=== PATIENT | female | born 1975 | race Caucasian/White ===

== ENCOUNTER → 2017-05-20 | Outpatient (CLI) | payer BC ==
[~2017-05-20] MED LIST: ALBUTEROL17 GM INH; COUMADIN3 MG PO; CYANOCOBALAM1000 MCG PO; FERROUS SULFAT325 MG PO; IBUPROFEN600 MG PO; LORTAB 10-3251 EACH PO; MULTIPLE VITAM1 EAC1 PO; NORCO PO; VITAMIN D350000 UNIT PO
--- NOTE | ~2017-05-20 | CO ---
Unit #: [id number] #: [id number] Patient: SENTHIL LOVE [id number] [address] [place], [place] [address] [id number] O MR#: [id number] NAME: SENTHIL LOVE ROOM: Age: 41 Sex: F Admission Date: 05/20/2017 : 1975 Attending Physician: Micky Monahan M.D. Primary Care Physician: Primary Care Physician No Consultation Date: 05/20/2017 CONSULTATION REPORT DATE OF CONSULT 05/20/2017 REASON FOR CONSULTATION Preoperative medical evaluation prior to left total knee arthroplasty scheduled by Dr. Monahan for 06/03/2017. HISTORY OF PRESENT ILLNESS The patient is a 41-year-old female who presents for preprocedural screening for the reasons indicated above. She denies upper chest, upper back or neck, jaw pain or pressure. Denies shortness of air, dyspnea on exertion, PND or orthopnea. She has never been evaluated for obstructive sleep apnea. She denies history of myocardial infarction, congestive heart failure, CVA, TIA, diabetes or kidney disease. She does have a history of mitral valve prolapse and is established with Dr. Rodriguez in [place]. She routinely receives SBE prophylaxis prior to dental procedures. She has been evaluated by Dr. Monahan and is scheduled for the above-referenced procedure. PAST MEDICAL HISTORY 1. Osteoarthritis. 2. Severe postop nausea and vomiting. 3. Latex allergy. 4. Asthma. 5. Mitral valve prolapse for which she receives antibiotics prior to dental procedures. 6. Anxiety. 7. History of ulcer. 8. History of gastric bypass. 9. History of anemia. 10. Degenerative disc disease. 11. 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 12. History of MRSA in 2005. 13. Chronic back pain. PAST SURGICAL HISTORY 1. C section x3. 2. Uterine ablation. 3. Cholecystectomy. 4. Gastric bypass. 5. Left bunionectomy. 6. Right foot spur removal. 7. Bilateral knee arthroscopy. 8. Right total knee arthroplasty. Unit #: [id number] #: [id number] Patient: SENTHIL LOVE 9. Right adrenalectomy related to "blood clot." 10. Umbilical hernia repair 2006. 11. Right rotator cuff repair. Please note this patient denies a personal history of complications to anesthesia in the form of severe nausea and vomiting. ALLERGIES Latex allergy, adhesive tape causes a rash. MEDICATION ALLERGIES Vancomycin causes severe nausea and vomiting. CURRENT MEDICATIONS 1. Multivitamin one p.o. daily 2. Cyanocobalamin 1,000 mcg p.o. every morning 3. Vitamin D3 50,000 units p.o. weekly on Thursday 4. Ferrous sulfate 325 mg p.o. daily 5. Ventolin 1 puff inhaled daily 6. Ibuprofen 600 mg p.o. t.i.d. p.r.n. pain SOCIAL HISTORY Denies EtOH use, tobacco use and illicit drug use. FAMILY HISTORY Diabetes and CVA. REVIEW OF SYSTEMS A 10-point review of systems was conducted and negative except as indicated under history of present illness as above. PHYSICAL EXAMINATION GENERAL: A 41-year-old female, awake, alert, in no acute distress. VITAL SIGNS: Temperature 97.3, heart rate 66, respiratory rate 16, blood pressure 125/74, oxygen saturation 100% on room air. HEENT: Atraumatic, normocephalic. Sclerae anicteric. No discharge from eyes, ears or nares. LYMPH: No preauricular, postauricular, tonsillar, submental, anterior or posterior cervical, supra- or infraclavicular adenopathy. ENDOCRINE: No thyromegaly or thyroid nodules. RESPIRATORY: Clear to auscultation in all [place] bilaterally without wheezes, rhonchi or rales. CARDIOVASCULAR: S1, S2. Regular rate and rhythm without murmur or rub. GI: Bowel sounds positive x4. Soft, nontender, nondistended. EXTREMITIES: No edema, cyanosis or clubbing. DIAGNOSTIC STUDIES LABORATORY: MRSA nasal swab report pending at this time. WBC 4.0, hemoglobin 11.9, hematocrit 36.3, platelets 200,000, sodium 139, potassium 3.9, chloride 106, CO2 28, glucose 77, BUN 14, creatinine 0.6, calcium 8.7, AST 22, ALT 19, alkaline phos 71, bili total 0.5, total protein 6.5, albumin 3.8, PT 10.5, INR 1.0. URINALYSIS - Negative with neither microscopic nor culture indicated. CARDIOLOGY: Twelve-lead EKG dated 01/01/2017 - Sinus rhythm, nonspecific T abnormalities anterior leads, no significant change, confirmed report. Unit #: [id number] #: [id number] Patient: SENTHIL LOVE IMAGING: Two-view chest x-ray report dated 01/01/2017 - No acute cardiopulmonary process. IMPRESSION 1. The patient is a 41-year-old female who presents for preprocedural screening for preoperative medical evaluation prior to left total knee arthroplasty scheduled by Dr. Monahan. The patient's Maldonado Revised Cardiac Risk Index is equal to 0.4% based on information available today. This represents the patient's perioperative risk of fatal or nonfatal myocardial infarction, cardiopulmonary arrest, arrhythmia and/or pulmonary edema. This has been discussed in detail with the patient and she wishes to proceed with surgery as scheduled at this time. 2. History of severe postop nausea and vomiting: Patient has been advised to inform the anesthesiologist of this information prior to surgery in the Holding Room. 3. Latex allergy: Latex-free materials and equipment to be used perioperatively. 4. History of asthma: Stable. 5. History of mitral valve prolapse: Patient is established with Dr. Rodriguez; murmur is not audible on physical examination today. Subacute bacterial endocarditis prophylaxis protocol per recommendation of anesthesiologist. 6. Anxiety: Stable. 7. History of ulcer: Consider proton pump inhibitor postoperatively. 8. History of gastric bypass with postop abscess. 9. History of anemia. 10. Osteoarthritis. 11. Degenerative disc disease. 12. History of DVT on the right adrenal gland status post right adrenalectomy. 13. History of methicillin-resistant Staphylococcus aureus in 2005: Consider contact precautions. 14. Chronic back pain: Stable. 15. Health maintenance: Patient was seen by her dentist last week. She has been asked to provide a letter of preoperative dental clearance to Dr. Monahan's office. She will arrange to have this faxed from her dentist to Dr. Monahan. Thank you for allowing us to participate in the care of this patient. We will gladly follow her with postop medical management pending the order of Dr. Monahan. Dictated by... Lyssa Amezquita/anita TD: 05/21/2017 02:06 JOB #: [id number] Unit #: [id number] #: [id number] Patient: SENTHIL LOVE CONSULTATION REPORT Page 1 of 1 X Edwina Hdez APRN CONSULTATION REPORT
--- NOTE | ~2017-05-20 | CO ---
Unit #: [id number] #: [id number] Patient: SENTHIL MOBLEY [id number] [address] [place], [place] [address] [id number] O MR#: [id number] NAME: SENTHIL MOBLEY ROOM: Age: 41 Sex: F Admission Date: 05/20/2017 : 1975 Attending Physician: Micky Monahan M.D. Primary Care Physician: No Primary Care Physician CONSULTATION REPORT ADDENDUM This is an addendum to a consultation note, job #[id number]. DATE OF THIS CONSULTATION ADDENDUM 06/22/2017 REASON FOR ADDENDUM Brief preoperative re-evaluation status post full mouth extraction in preparation for left total knee arthroplasty scheduled by Dr. Monahan for 06/29/17. Ms. Mobley was referred back to her dentist for preoperative dental clearance. She is now status post full mouth extraction and states she has some teeth extracted as recently as yesterday. She states she has not been taking an extraordinary amount of pain medicine or Tylenol. She denies nausea, vomiting, diarrhea or abdominal complaints. Review of labs re-collected today reveal WBC 4.6, hemoglobin 11.5, hematocrit 34.7, platelet count 190,000. Urinalysis - urobilinogen 1.0, otherwise negative with culture not indicated. PT 10.9, INR 1.0, sodium 137, potassium 3.6, chloride 105, CO2 28, glucose 83, BUN 15, creatinine 0.5, calcium 8.9, AST 77, ALT 42, alkaline phos. 118, bili total 0.4, total protein 6.5, albumin 3.8. Patient's medical history has been reviewed and there are no changes since the initial preoperative evaluation on 05/20/17. The patient's Maldonado Revised Cardiac Risk Index remains equal to 0.4%. I recommended that LFTs be repeated the a.m. of OR. The patient has been advised not to take excessive Tylenol or pain medication. She denies ETOH, smoking and illicit drug use. The patient's bilateral lower extremity duplex venous Doppler evaluation is pending at this time. It is to be completed this afternoon with results faxed to both me and to Dr. Osseo. Dictated by... Edwina Hdez A.P.R.N. for Federico Gonzalez M.D. [facility]/ Unit #: [id number] #: [id number] Patient: SENTHIL MOBLEY TD: 06/23/2017 08:29 JOB #: [id number] CONSULTATION REPORT Page 1 of 1 X Edwina Hdez APRN X CONSULTATION REPORT
[2017-05-20 09:30] LABS: HEMATOCRIT 36.3 % (35.0-45.0); HEMOGLOBIN 11.9 gm/dL (12.0-16.0); MEAN CELL VOLUME 89.8 FL (83-96); MEAN CORPUSCULAR HEMOGLOBIN 29.3 PG (28-34); MEAN CORPUSCULAR HGB CONC 32.6 g/dL (30-36); MEAN PLATELET VOLUME 8.8 FL (6.5-11.5); RED BLOOD COUNT 4.04 X10e (3.90-5.30); RED CELL DISTRIBUTION WIDTH 14.6 % (11.0-15.5); URINE APPEARANCE CLEAR; URINE BILIRUBIN NEG (NEG); URINE BLOOD NEG (NEG); URINE COLOR YELLOW; URINE GLUCOSE NEG (NEG); URINE KETONE NEG (NEG); URINE LEUKOCYTE ESTERASE NEG (NEG); URINE NITRATE NEG (NEG); URINE PROTEIN NEG (NEG); URINE SPECIFIC GRAVITY 1.024 (1.003-1.035)
[2017-05-20 09:37] LABS: PROTHROMBIN TIME (PATIENT) 10.5 SECONDS (10.0-11.7)
[2017-05-20 09:46] LABS: URINE SOURCE CLEAN CATCH
[2017-05-20 09:47] LABS: CULTURE INDICATED? NO
[2017-05-20 09:55] LABS: ALBUMIN SERUM 3.8 g/dL (3.5-5.0); BILIRUBIN,TOTAL 0.5 mg/dL (0.2-2.0); BUN/CREATININE RATIO 23.33; CALCIUM SERUM 8.7 mg/dL (8.4-10.2); CREATININE SERUM 0.6 mg/dL (0.6-1.4); POTASSIUM 3.9 mmol/L (3.5-5.1); PROTEIN TOTAL SERUM 6.5 g/dL (6.0-8.3)
== END | disposition home or self-care (01) ==
LOC: CAMB 08:56
PROVIDERS: Orthopaedic Surgery
DX: Z01.818 Encounter for other preprocedural examination (principal); M17.12 Unilateral primary osteoarthritis, left knee
CPT/HCPCS: 36415; 80053; 81003; 85027; 85610; 86850; 86900; 86901; 87070

== ENCOUNTER → 2017-06-22 | Outpatient (CLI) | payer BC ==
--- NOTE | ~2017-06-22 | US84 ---
[id number] [facility] [address] [facility]. [place], [place] [address] [id number] O MR#: [id number] Acc #: [id number] NAME: SENTHIL LOVE : 1975 SEX: F STUDY DATE/TIME: 06/22/2017 12:14 UNIT: [facility] ROOM: STUDY DESCRIPTION: US LE Veins Complete Loyd Stdy Attending Physician: Micky Monahan M.D. Referring Physician: Micky Monahan M.D. Ordering Physician: Micky Monahan M.D. MEDICAL IMAGING REPORT This report is preliminary unless electronic signature is present EXAM Bilateral lower extremity venous duplex 06/22/2017 HISTORY Bilateral lower extremity pain and edema for 1 week and history of prior deep vein thrombosis. TECHNIQUE Venous ultrasound examination of both lower extremities was performed using grayscale, spectral Doppler and color flow Doppler imaging. FINDINGS The examination is negative. There is no evidence of deep venous thrombus from the groin to the lower calf bilaterally. Visualized greater saphenous veins are also patent. IMPRESSION Negative examination. No evidence of lower extremity deep venous thrombosis. Dictated by... Elan Partida M.D. THIS IS AN ELECTRONICALLY VERIFIED REPORT Elan Partida M.D. at 06/23/2017 7:14 AM OUMAR/michelle TD: 06/22/2017 18:59 JOB #: [id number] MEDICAL IMAGING REPORT Page 1 of 1 COPY
[2017-06-22 10:01] LABS: HEMOGLOBIN 11.5 gm/dL (12.0-16.0); MEAN CELL VOLUME 90.7 FL (83-96); MEAN CORPUSCULAR HEMOGLOBIN 30.6 PG (28-34); MEAN CORPUSCULAR HGB CONC 33.8 g/dL (30-36); MEAN PLATELET VOLUME 9.1 FL (6.5-11.5); RED BLOOD COUNT 3.75 X10e (3.90-5.30); RED CELL DISTRIBUTION WIDTH 13.8 % (11.0-15.5); URINE APPEARANCE CLOUDY; URINE BLOOD NEG (NEG); URINE COLOR DK YELLOW; URINE GLUCOSE NEG (NEG); URINE KETONE NEG (NEG); URINE LEUKOCYTE ESTERASE NEG (NEG); URINE NITRATE NEG (NEG); URINE PROTEIN NEG (NEG); URINE SPECIFIC GRAVITY 1.034 (1.003-1.035); WHITE BLOOD COUNT 4.6 X10e3 (4.0-10.5)
[2017-06-22 10:06] LABS: URINE BILIRUBIN NEG (NEG)
[2017-06-22 10:07] LABS: CULTURE INDICATED? NO; URINE SOURCE CLEAN CATCH
[2017-06-22 10:11] LABS: PROTHROMBIN TIME (PATIENT) 10.9 SECONDS (10.0-11.7)
[2017-06-22 11:05] LABS: ALBUMIN SERUM 3.8 g/dL (3.5-5.0); BILIRUBIN,TOTAL 0.4 mg/dL (0.2-2.0); CALCIUM SERUM 8.9 mg/dL (8.4-10.2); CREATININE SERUM 0.5 mg/dL (0.6-1.4); GLOM FILT RATE Estimated 121.1 mL/min (>60); POTASSIUM 3.6 mmol/L (3.5-5.1); PROTEIN TOTAL SERUM 6.5 g/dL (6.0-8.3)
== END | disposition home or self-care (01) ==
LOC: CAMB 09:30
PROVIDERS: Orthopaedic Surgery
DX: Z01.818 Encounter for other preprocedural examination (principal); M17.12 Unilateral primary osteoarthritis, left knee; M79.605 Pain in left leg; M79.604 Pain in right leg; M79.89 Other specified soft tissue disorders; I38 Endocarditis, valve unspecified; F41.9 Anxiety disorder, unspecified; Z86.718 Personal history of other venous thrombosis and embolism; Z86.14 Personal history of Methicillin resistant Staphylococcus aureus infection; Z79.01 Long term (current) use of anticoagulants
CPT/HCPCS: 36415; 80053; 81003; 85027; 85610; 86850; 86900; 86901; 87070; 93970

== ENCOUNTER 2017-06-29 10:22 | Inpatient (IN) | payer BC ==
[~2017-06-29] VITALS: Ht 167.6 cm; Wt 106.5 kg
--- NOTE | ~2017-06-29 | OR ---
Unit #: [id number] #: [id number] Patient: SENTHIL LOVE [id number] [address] [place], [place] [address] [id number] I MR#: [id number] NAME: SENTHIL LOVE ROOM: 454 Date of Procedure: 06/29/2017 Admission Date: 06/29/2017 Surgeon: Micky Monahan M.D. : 1975 Attending Physician: Micky Monahan M.D. Primary Care Physician: Primary Care Physician No OPERATIVE REPORT PREOPERATIVE DIAGNOSIS Primary localized osteoarthritis of the left knee. POSTOPERATIVE DIAGNOSIS Primary localized osteoarthritis of the left knee. PROCEDURE PERFORMED Left total knee. ASSISTANTS Kyra Alejandro and Julien Dwyer. ESTIMATED BLOOD LOSS 100 mL. INDICATIONS FOR PROCEDURE This is a 41-year-old with severe pain in her left knee. She has had injections and anti-inflammatories with no relief of her pain. Her x-rays show she has [id number] with subchondral sclerosis and she is brought to the hospital today for left total knee. DESCRIPTION OF PROCEDURE The patient was brought to the holding room, given 2 g of Ancef as well as an adductor canal block. She was brought back to the operating room, given a general anesthetic. The left leg was prepped and draped in a sterile fashion. Tourniquet inflated to 300. A straight anterior skin incision was made. The subcutaneous dissected away and a medial arthrotomy performed. Patella was slid to the side. Osteophytes removed from the femur. The intramedullary guide was used and a 6-degree valgus cut was made on the distal femur. The femur was sized using the ATTUNE sizing guide and found to be a size 7. The anterior-posterior cutting block was applied. Rotation was checked in the knee. Anterior and posterior cuts were made along with the chamfer cuts. Proximal tibial cut was made after the trochlear groove cut was made and it was done with an external guide, the tibia was sized at a 7 as well. Any remaining meniscal fragments were debrided and osteophytes were removed from the posterior femoral condyle. Trial femur was applied and the drill holes were made for lugs on the femoral component. The trial tibia was applied with a 5 mm insert. The knee came to full extension and good stability in extension and flexion. Rotation of the tibia was marked and the external alignment guide showed appropriate alignment of the limb. The patella was grasped with 2 towel clips, measured 26 mm thick, cut smooth at 14 and a Unit #: [id number] #: [id number] Patient: SENTHIL LOVE 42 patella was the appropriate size. Three drill holes were made. Trial patella applied and it tracked properly. We then removed all the trials, used the drill and punch for the tibial tray. The knee was irrigated and dried while the cement was mixed. The posterior capsule and periosteum were injected with ropivacaine mixture and then all 3 components were cemented simultaneously. Once again, it was a size 7 cruciate retaining femur, size 7 tibial base plate, and a 41 patella from the Remind knee System. After the cement had hardened, the real insert was positioned in the tray. It was 5 mm thick. The tourniquet was released. Hemostasis obtained. The rest of ropivacaine mixture was injected. The knee was irrigated with Betadine and bacitracin and then closed using 0 Ethibond in the arthrotomy, 0 and 2-0 Vicryl in the subcutaneous, and jorge a in the skin. chiropractic assistant, Kyra Alejandro, was present throughout the entire case. Dictated by... Maribell Pack/abimael TD: 07/01/2017 12:47 JOB #: [id number] OPERATIVE REPORT Page 1 of 1 X Micky Monahan MD PROCEDURE OPERATIVE NOTE
--- NOTE | ~2017-06-29 | DS ---
Unit #: [id number] #: [id number] Patient: SENTHIL LOVE [id number] [id number] [facility]. [place], [place] [address] [id number] I MR#: [id number] NAME: SENTHIL LOVE ROOM: 454 Age: 41 Sex: F Admission Date: 06/29/2017 : 1975 Discharge Date: 06/30/2017 Attending Physician: Micky Monahan M.D. Primary Care Physician: No Primary Care Physician DISCHARGE SUMMARY ADMITTING DIAGNOSIS Severe osteoarthritis of the left knee. PROCEDURES Left total knee arthroplasty. CONSULTING PHYSICIAN HIPS for medical management. HOSPITAL COURSE The patient was admitted to [facility] with a history of severe osteoarthritis of her left knee. The patient has undergone the above procedure. The patient tolerated the procedure well. There were no apparent complications. Today she is in stable condition. Her temperature is 98.3, blood pressure 125/66, heart rate 84 and regular, respirations 18. Her incision is healing well. Her neurovascular exam is intact. She has 2+ pulses in her lower extremities. The plan will be to discharge her home later today. DISPOSITION Home with [facility]. DISCHARGE MEDICATIONS Per med/rec list. She will be on her regular medications with the addition of [place] 10 for pain control and Coumadin for DVT prophylaxis. FOLLOWUP INSTRUCTIONS The patient will need home health, which will be [facility]. She will need PT and INR done on 07/01, 07/02, 07/03 and then every Thursday and thereafter with the results called to . The patient will wear TEDS during the day, off at night. The patient should follow up with Dr. Monahan in 6 weeks. The patient will begin physical therapy, including active and active-assist range of motion, strengthening, progressive ambulation - begin with a walker and progress to a cane as tolerated. Dictated by... Janusz Rich P.A.-C- for Maribell Pack/altagracia TD: 06/30/2017 08:47 JOB #: [id number] Unit #: [id number] #: [id number] Patient: IVANSENTHIL ROMULO DISCHARGE SUMMARY Page 1 of 1 X X DISCHARGE SUMMARY
[~2017-06-29 10:22] MED LIST changes: -COUMADIN3 MG PO; -LORTAB 10-3251 EACH PO
[2017-06-29 11:58] LABS: PROTHROMBIN TIME (PATIENT) 11.1 SECONDS (10.0-11.7)
[2017-06-29 12:16] LABS: ALBUMIN SERUM 3.9 g/dL (3.5-5.0); BILIRUBIN, DIRECT 0.1 mg/dL (0.0-0.2); BILIRUBIN,INDIRECT 0.5 mg/dL (0.0-0.9); BILIRUBIN,TOTAL 0.6 mg/dL (0.2-2.0); PROTEIN TOTAL SERUM 6.6 g/dL (6.0-8.3)
[2017-06-30 02:44] LABS: HEMATOCRIT 31.1 % (35.0-45.0); HEMOGLOBIN 10.7 gm/dL (12.0-16.0)
[2017-06-30 03:06] LABS: INR 1.2; PROTHROMBIN TIME (PATIENT) 13.3 SECONDS (10.0-11.7)
[2017-06-30 03:20] LABS: BUN/CREATININE RATIO 21.66; CALCIUM SERUM 8.6 mg/dL (8.4-10.2); CREATININE SERUM 0.6 mg/dL (0.6-1.4); MAGNESIUM 1.9 mg/dL (1.6-3.0); POTASSIUM 4.5 mmol/L (3.5-5.1)
[2017-06-30] MEDS ORDERED: COUMADIN3 MG PO (09:39)
[2017-06-30] MEDS ORDERED: LORTAB 10-3251 EACH PO (09:39)
== END 2017-06-30 11:38 | disposition home or self-care (01) | DRG 470 ==
LOC: CSUR 10:22 → CPACUOF 11:17 → CSUR 11:26 → CPACUOF 11:26 → CSUR 11:30 → CPACUOF 15:15 → C4B 15:15
PROVIDERS: Nurse Practitioner; Orthopaedic Surgery
PROC: 0SRD0J9 Replacement of Left Knee Joint with Synthetic Substitute, Cemented, Open Approach (ICD-10-PCS; principal; 2017-06-29 12:00)
DX: M17.12 Unilateral primary osteoarthritis, left knee (principal); D62 Acute posthemorrhagic anemia; F41.9 Anxiety disorder, unspecified; Z86.14 Personal history of Methicillin resistant Staphylococcus aureus infection; Z86.718 Personal history of other venous thrombosis and embolism; Z79.01 Long term (current) use of anticoagulants; J45.909 Unspecified asthma, uncomplicated
CPT/HCPCS: 80048; 80076; 83735; 85014; 85018; 85610; 94010; 94664; 94760; 97110; 97116; 97161; 97530; C1776; G8978-GP; G8979-GP; G8980-GP; J0131; J0171; J0690; J0735; J1100; J1170; J1650; J1885; J2250; J2405; J2795; J3010